=== PATIENT | male | born 1975 | race Two or more races ===

== ENCOUNTER 2018-04-07 10:23 | Outpatient (CLI) | payer OTHER ==
[2018-04-08] MEDS ORDERED: SURFAK240 M1 PO (09:02)
[2018-04-08] MEDS ORDERED: PERCOCET 5-3251 EACH PO (09:02)
[2018-04-08] MEDS ORDERED: POLY119PG PO (09:02)
== END 2018-04-07 15:05 | disposition home or self-care (01) ==
LOC: TOM 10:23
DX: K40.91 Unilateral inguinal hernia, without obstruction or gangrene, recurrent (principal)

== ENCOUNTER 2018-04-08 06:14 | Day surgery (SDC) | payer OTHER ==
[2018-04-08] MEDS ORDERED: SURFAK240 M1 PO (09:02)
[2018-04-08] MEDS ORDERED: PERCOCET 5-3251 EACH PO (09:02)
[2018-04-08] MEDS ORDERED: POLY119PG PO (09:02)
== END 2018-04-08 13:10 | disposition home or self-care (01) ==
LOC: CIR.AMB 06:14
DX: K40.31 Unilateral inguinal hernia, with obstruction, without gangrene, recurrent (principal); K42.0 Umbilical hernia with obstruction, without gangrene; K43.6 Other and unspecified ventral hernia with obstruction, without gangrene